=== PATIENT | female | born 1990 | race Caucasian/White ===

== ENCOUNTER → 2020-05-17 09:57 | Outpatient (CLI) | payer BC | END | disposition home or self-care (01) | LOC: D.LAB 09:57 | PROVIDERS: ATTEND Student in an Organized Health Care Education/Training Program | DX: Z11.59 Encounter for screening for other viral diseases (principal) ==

== ENCOUNTER 2020-07-02 19:05 | Inpatient (IN) | payer BC ==
[~2020-07-02] VITALS: Ht 170.2 cm; Wt 81.6 kg
[2020-07-02 19:47] LABS: HEMATOCRIT 36.1 % (36.0-48.0); HEMOGLOBIN 12.4 g/dL (12-16); MCH 30.8 pg (26.0-34.0); MCHC 34.3 g/dL (31.0-37.0); MCV 89.8 fL (80.0-100.0); MEAN PLATELET VOLUME 9.4 fL (7.4-10.4); RBC 4.02 10x6/uL (4.00-5.40); WBC 13.3 10x3/uL (4.8-10.8)
[2020-07-02 20:02] LABS: UDS - AMPHET NEGATIVE QUAL (NEGATIVE); UDS - BARB NEGATIVE QUAL (NEGATIVE); UDS - BENZO NEGATIVE QUAL (NEGATIVE); UDS - COCAINE NEGATIVE QUAL (NEGATIVE); UDS - OPIATE NEGATIVE QUAL (NEGATIVE); UDS - PCP NEGATIVE QUAL (NEGATIVE); UDS - THC NEGATIVE QUAL (NEGATIVE)
[2020-07-02] MEDS ORDERED: PRENAVITE1 TAB PO (20:46)
[2020-07-02 20:48] VITALS: BP 129/74; Ht 170.2 cm; Wt 81.6 kg
--- NOTE | 2020-07-03 00:03 | NUR ---
DR WALLACE NOTIFIED AND REVIEWED PT's BEHAVIOR AND ASSESSMENT RESULTS. PT IS A LOW RISK PER DR WALLACE. DR WALLACE STATED TO GIVE RESOURCES TO PT AT TIME OF DISCHARGE. NO FURTHER ORDERS AT THIS TIME. RESOURCES REVIEWED WITH PT AND SHE VERBALIZED UNDERSTANDING.
--- NOTE | 2020-07-03 16:30 | NUR ---
PT TRANSFERED VIA AMBULATORY TO ROOM 1257. PT ORIENTED TO ROOM, BED, AND CALL LIGHT. PT RIGO ACTIVITY WELL.
--- NOTE | 2020-07-03 18:02 | NUR ---
PT CALLS OIL HEATER OPERATOR LIGHT. STATES PASSED BLOOD CLOT. THIS NURSE TO ROOM. PT IN BATHROOM. ORANGE-SIZED CLOT NOTED IN UNDERGARMENT. PT STATES VOIDED WITHOUT DIFFICULTY. STATES THIRD VOID AND HASN'T VOIDED SINCE SHOWER. PERICARE DONE PER PT. UNDERGARMENT CHANGED. PT AMB BACK TO BED. FUNDUS MASSAGED UNTIL FIRM AT U/2. RUBRA LOCHIA SCANT AMT. NO CLOTS EXPRESSED. PT STATES C/O MILD DIZZINESS WHEN AMBULATORY TO BATHROOM. STATES "IT'S NOT BAD". PT INSTRUCTED TO NOTIFY NURSE OF SOAKING 1/2 OF UNDERGARMENT OR PASSING CLOTS THE SIZE OF AN EGG OR BIGGER. PT VERBALIZES UNDERSTANDING.
[2020-07-03 19:00] VITALS: BP 105/59
--- NOTE | 2020-07-03 19:00 | NUR ---
Shift assessment complete, vss, no distress noted, fundus 2 below, firm without massage, bleeding scant. will monitor.
--- NOTE | 2020-07-03 21:04 | NUR ---
Room check complete, pt sitting up in bed holding , water take to pt and dad, no distress or other request noted will monitor.
--- NOTE | 2020-07-03 23:11 | NUR ---
Room check complete, mom denies any needs at this time. Infant to nsy.
--- NOTE | 2020-07-04 01:03 | NUR ---
Room check complete, pain medication given, mom reports no other needs at this time, will monitor.
--- NOTE | 2020-07-04 03:17 | NUR ---
Room check complete, mom sitting up in bed holding , no problems noted, brought mom 2 glasses of water, mom denies other needs.
--- NOTE | 2020-07-04 04:30 | NUR ---
Room check complete, mom sitting up in bed, no problems noted, will monitor.
--- NOTE | 2020-07-04 06:00 | NUR ---
Lab to pt room to draw AM lab, pt spouse refused for pt to be stuck for AM lab.
[2020-07-04 06:11] LABS: RAPID PLASMA REAGIN Non Reactive (Non Reactive)
--- NOTE | 2020-07-04 06:15 | NUR ---
DR ALVES CALLED AND MADE AWARE OF PATIENTS REFUSING HER BLOOD DRAW THIS AM. ADMISSION LABS REVIEWED, NO FURTHER ORDERS AT THIS TIME. LAB MANAGER ARCHITECTURE NOTIFIED.
--- NOTE | 2020-07-04 06:37 | NUR ---
Room check complete, no problems noted, mom and dad stated they did not need anything at this time.
--- NOTE | 2020-07-04 07:00 | NUR ---
REPORT RECIEVED FROM Loreta LINCOLN RN.
--- NOTE | 2020-07-04 08:00 | NUR ---
TO ROOM FOR ASSESSMENT. PT FEEDING BABY. NO C/O PAIN AT THIS TIME. NO NEEDS OR CONCERNS VOICED AT THIS TIME.
--- NOTE | 2020-07-04 09:05 | NUR ---
DR. GREEN TO GUEVARA ALEJANDRO MD STATES "MS. CORDOBA SAID SHE WOULD TAKE HER BLOOD DRAW NOW". JANUARY IN THE LAB NOTIFIED.
[2020-07-04 09:45] VITALS: BP 99/57
--- NOTE | 2020-07-04 09:45 | NUR ---
TO ROOM FOR ASSESSMENT. PT SITTING UP IN BED WITH BABY IN ARMS. ASSESSMENT COMPLETEDED; VS TAKEN. SEE FLOWSHEET. FUNDUS FIRM; MIDLINE, 2 BELOW THE UMBILICUS. LOCHIA SMALL/SCANT, RUBRA. OFFERED MOTRIN FOR PAIN; PT DECLINES AT THIS TIME. PT STATES SHE IS PASSING GAS AND EMPTYING BLADDER WITHOUT DIFFICULTY. REQUESTS TUCKS AND DERMAPLAST FOR PERINEAL/HEMORRHOID DISCOMFORT. OFFERED MOTRIN ALSO FOR DISCOMFORT; PT DECLINES AT THIS TIME. NO OTHER NEEDS OR CONCERNS AT THIS TIME.
[2020-07-04 09:59] LABS: BASOPHILS 0.2 % (0-2); EOSINOPHILS 1.2 % (0-7); HEMATOCRIT 33.7 % (36.0-48.0); HEMOGLOBIN 11.3 g/dL (12-16); LYMPHOCYTES 19.4 % (15-50); MCH 30.5 pg (26.0-34.0); MCHC 33.5 g/dL (31.0-37.0); MCV 91.1 fL (80.0-100.0); MEAN PLATELET VOLUME 9.2 fL (7.4-10.4); NEUTROPHILS 72.2 % (40-80); PLATELET COUNT 184 10x3/uL (130-400); RDW 14.3 % (11.5-14.5); WBC 13.8 10x3/uL (4.8-10.8)
--- NOTE | 2020-07-04 11:45 | NUR ---
DR. GREEN CALLED TO UNIT. DISCHARGE ORDER GIVEN.
--- NOTE | 2020-07-04 12:15 | NUR ---
REVIEWED DISHCARGE INSTRUCTIONS WITH PT. STATES UNDERSTANDING. FOLLOW UP APPOINTMENT GIVEN FOR 08/15/20 @ 8345. IV D/C'D. CATHETER INTACT. PRESSURE DRESSING APPLIED.
--- NOTE | 2020-07-04 12:30 | NUR ---
PT DISCHARGED HOME AMBULATORY WITH TO PRIVATE VEHICLE ACCOMPANIED BY THIS NURSE.
--- NOTE | 2020-07-05 13:35 | MORECARE ---
CASE MANAGEMENT DISCHARGE SUMMARY PATIENT: SHERRY CORDOBA UNIT: [id number] ADM DATE: 07/02/20 AGE: 30 : 88 SEX: F ROOM/BED: D.1257 AUTHOR: TRACEY LEDESMA PHYSICIAN: REFERRING PHYSICIAN: LOLA GREEN DO DATE OF SERVICE: 07/05/20 Discharge Plan Patient Name: SHERR[facility] CORDOBA [facility] [facility] 1990 Planned Disposition: Home Anticipated Discharge Date: 07/04/20 Discharge Date: 07/04/2020 Expected LOS: 2 Initial Reviewer: [email or web address] Initial Review Date: 07/02/2020 Generated: 07/05/20 2:34 pm Patient Name: SHERRY CORDOBA Page [id number] at 1335 All edits/amendments must be made on the electronic document DICTATION DATE: 07/05/20 1334 SORTER OPERATOR: RENETTA 07/05/20 1334 RPT#: [id number] DC DATE:07/04/20 STATUS: DIS IN [facility] [address] [place] [address] END OF REPORT
== END 2020-07-04 12:40 | disposition home or self-care (01) | DRG 807 ==
LOC: D.LD 19:05
PROVIDERS: ADMIT Student in an Organized Health Care Education/Training Program; ATTEND Student in an Organized Health Care Education/Training Program
PROC: 3E033VJ Introduction of Other Hormone into Peripheral Vein, Percutaneous Approach (ICD-10-PCS; 2020-07-02)
PROC: 10E0XZZ Delivery of Products of Conception, External Approach (ICD-10-PCS; principal; 2020-07-03)
PROC: 10907ZC Drainage of Amniotic Fluid, Therapeutic from Products of Conception, Via Natural or Artificial Opening (ICD-10-PCS; 2020-07-03)
DX: O80 Encounter for full-term uncomplicated delivery (principal); Z37.0 Single live birth; Z3A.39 39 weeks gestation of pregnancy